=== PATIENT | male | born 1985 | race Caucasian/White ===

== ENCOUNTER 2017-05-18 13:29 | Emergency (ER) | payer OTHER ==
[2017-05-18 14:09] VITALS: RESP 18
[2017-05-18] MEDS ORDERED: NS 1,000 ML IV ONE ×2 (14:23→14:45)
--- NOTE | 2017-05-18 14:23 | EDPHY ---
H & P Smoking Status: Never smoked Time Seen by Provider: 05/18/17 13:48 HPI/ROS: CHIEF COMPLAINT: Syncope HISTORY OF PRESENT ILLNESS: 32-year-old male presents to the emergency department by private vehicle after having a syncopal episode at a restaurant just prior to arrival. Patient thinks that he is severely dehydrated. He drank a lot of alcohol yesterday and he feels very dehydrated. He states while he was at the restaurant he thought that he was going to pass out and so he was going to excuse himself to the restroom. He actually lowered himself down to the ground and then had a syncopal episode and woke up with a bench repair technician near him. No witnessed seizure activity. No history of confusion or postictal state. He did not bite his tongue. He was not incontinent of urine. Denies chest pain or difficulty breathing. Denies abdominal pain. Denies neck or back pain. Denies injury to upper or lower extremities. REVIEW OF SYSTEMS: Constitutional: No fever, no chills. Eyes: No double or blurry vision. ENT: No sore throat. Respiratory: No cough, no shortness of breath. Cardiac: No chest pain. Gastrointestinal: No abdominal pain, vomiting or diarrhea. Genitourinary: No dysuria. Musculoskeletal: No neck or back pain. Skin: No rashes. Neurological: No headache. (Rose Marie Petersona M) Past Medical/Surgical History: Surgery on nose (Kristen,Bela M) Social History: From [place], [place] (Kristen,Bela M) Physical Exam: General Appearance: Alert, no distress. Mentating normally and answering questions appropriately. No visible signs of trauma to his head. Eyes: Pupils equal and round. Extraocular motions are all intact. ENT: Mouth: Mucous membranes moist. No dental injury or malocclusion. No tongue laceration. Respiratory: No wheezing, rhonchi, or rales, lungs are clear to auscultation. Cardiovascular: Regular rate and rhythm. Gastrointestinal: Abdomen is soft and nontender, no masses, no rebound or guarding, bowel sounds normal. Neurological: Alert and oriented x 3, cranial nerves II through XII grossly intact Skin: Warm and dry, no rashes. Musculoskeletal: Nontender to palpate along the cervical, thoracic or lumbar spine. Neck is supple. Extremities: Full range of motion and no peripheral edema. Psychiatric: Patient is oriented X 3, there is no agitation. (Bela Peterson) Constitutional: Initial Vital Signs Temperature (C) 36.3 C 05/18/17 13:31 Heart Rate 88 05/18/17 13:31 Respiratory Rate 16 05/18/17 13:31 Blood Pressure 133/76 H 05/18/17 13:31 O2 Sat (%) 96 05/18/17 13:31 O2 Delivery Mode Room Air O2 (L/minute) 2 Allergies/Adverse Reactions: No Known Allergies Allergy (Verified 05/18/17 13:32) Home Medications: Medication Instructions Recorded Pantoprazole Sodium 05/18/17 Medical Decision Making - Diagnostics EKG Interpretation: 12-lead EKG interpreted by me; official reading is in trace master. My interpretation is sinus rhythm rate 83 incomplete right bundle branch block ( Jack Zavala) ED Course/Re-evaluation: 32-year-old male presents to the emergency department after having a witnessed syncopal episode in a restaurant. Patient thinks that he drank too much alcohol yesterday and feels extremely dehydrated. He was at the restaurant and he was ordering his food and was feeling very lightheaded. He was walking to the bathroom he then lowered himself to the ground and then woke up with people around him. There is no witnessed seizure activity. He denies a headache. There is no reports of trauma hitting his head. Denies chest pain or difficulty breathing. Denies abdominal pain. Denies neck or back pain. Laboratory studies are all within normal limits. His troponin is negative. The patient had an IV established and he was given IV normal saline, 2 L. Upon discharge the patient was feeling much better. He had no complaints of chest pain throughout his stay in the emergency department. He was tolerating p.o. fluids and is comfortable being discharged. He was given primary care referral. (Bela Peterson) Differential Diagnosis: Syncope including but not limited to vasovagal syncope, arrhythmia, dehydration , and blood loss. (Bela Peterson) - Data Points Laboratory Results: Laboratory Results 05/18/17 14:04 05/18/17 14:04 Medications Given: Discontinued Medications Sodium Chloride (Ns) 1,000 mls @ 0 mls/hr IV ONCE ONE PRN Reason: Wide Open Stop: 05/18/17 14:24 Last Admin: 05/18/17 14:00 Dose: 1,000 mls Sodium Chloride (Ns) 1,000 mls @ 0 mls/hr IV ONCE ONE; Wide Open PRN Reason: Protocol Stop: 05/18/17 14:46 Last Admin: 05/18/17 14:45 Dose: 1,000 mls Departure - Departure Disposition: Home, Routine, Self-Care Clinical Impression: Dehydration Syncope Qualifiers: Syncope type: unspecified Qualified Code(s): R55 - Syncope and collapse Condition: Good Instructions: Syncope (ED) Additional Instructions: Advance diet as tolerated. Return to the emergency department if you develop headache, vomiting, altered mental status, or if you feel worse in any way. Referrals: CAMILO FRANCO [Other] - 2-3 days, call for appt.
[2017-05-18 14:24] LABS: % IMMATURE GRANULYOCYTES 1.3 % (0.0-1.1); ABSOLUTE IMMATURE GRANULOCYTES 0.09 10^3/uL (0.00-0.10); ADD DIFF? NO; ADD MORPH? NO; ADD SCAN? NO; ATYPICAL LYMPHOCYTE FLAG 40 (0-99); FRAGMENT RBC FLAG 0 (0-99); HEMATOCRIT 40.5 % (40.0-51.0); HEMOGLOBIN 14.1 g/dL (13.7-17.5); LEFT SHIFT FLG 10 (0-99); LIPEMIA HEMOLYSIS FLAG 90 (0-99); MEAN CELL HEMOGLOBIN 32.2 pg (27.9-34.1); MEAN CELL HEMOGLOBIN CONCENTR. 34.8 g/dL (32.4-36.7); MEAN CELL VOLUME 92.5 fL (81.5-99.8); MEAN PLATELET VOLUME 10.1 fL (8.7-11.7); PLATELET CLUMPS FLAG 0 (0-99); PLATELET COUNT 266 10^3/uL (150-400); RED BLOOD CELL COUNT 4.38 10^6/uL (4.40-6.38); RED CELL DISTRIBUTION WIDTH 12.8 % (11.5-15.2)
[2017-05-18 14:38] LABS: ANION GAP 18 mEq/L (8-16); CALCIUM 10.1 mg/dL (8.5-10.4); CARBON DIOXIDE 21 mEq/l (22-31); CHLORIDE 101 mEq/L (97-110); GLOMERULAR FILTRATION RATE > 60; GLUCOSE 84 mg/dL (70-100); POTASSIUM 4.1 mEq/L (3.5-5.2); SODIUM 140 mEq/L (134-144)
--- NOTE | 2017-05-18 14:41 | CPEKG ---
Heart Rate: 83 RR Interval: 723 P-R Interval: 188 QRSD Interval: 114 QT Interval: 384 QTC Interval: 452 P Massena: 58 QRS Massena: 26 T Wave Massena: 35 EKG Severity - ABNORMAL ECG - EKG Impression: SINUS RHYTHM EKG Impression: INCOMPLETE RIGHT BUNDLE BRANCH BLOCK Electronically Signed By: Jack Zavala 18-May-2017 15:24:05
[2017-05-18 14:49] LABS: TROPONIN I < 0.012 ng/mL (0-0.034)
[2017-05-18 17:06] VITALS: BP 129/81; PULSE 97; TEMP 98.2; O2SAT 97
== END 2017-05-18 17:06 | disposition home or self-care (01) ==
DX: R55 Syncope and collapse (principal); E86.0 Dehydration